=== PATIENT | male | born 1960 | race Hispanic/Latino ===

== ENCOUNTER → 2021-05-08 | Outpatient (CLI) | payer OTHER ==
[~2021-05-08] MED LIST: GLIPIZIDE-METF1 EAC2 PO; LISINOPRIL20 MG PO; [UNRECOGNIZED DRUG - REMARK]
== END ==
LOC: RAD 15:58
PROVIDERS: ATTEND Family Medicine
DX: M25.562 Pain in left knee (principal)

== ENCOUNTER 2021-06-24 12:17 | Inpatient (IN) | payer OTHER ==
[~2021-06-24] VITALS: Ht 175.3 cm; Wt 160.6 kg
[2021-06-24] MEDS ORDERED: Vancomycin IV 1 GM in SODIUM CHLORIDE 0.9% 250ML 250 ML IV ONE (13:30)
[2021-06-24] MEDS ORDERED: PIPERACILLIN/TAZOBACTAM 3.375 GM in SODIUM CHLORIDE 0.9% 50ML 50 ML IV ONE (13:30)
[2021-06-24] MEDS ORDERED: SODIUM CHLORIDE 0.9% 1000ML 1,000 ML IV ONE (13:30)
[2021-06-24 13:48] LABS: BASOPHILS % 0.3 % (0.0-1.0); EOSINOPHILS # (AUTO) 0.1 (0.0-0.4); EOSINOPHILS % 1.2 % (0.0-6.0); HEMATOCRIT 35.3 % (38.2-49.6); HEMOGLOBIN 11.3 g/dL (14.0-18.0); LYMPHOCYTES % 12.7 % (18.0-39.1); MEAN CORPUSCULAR VOLUME 93.6 fL (81-99); MONOCYTES % 13.5 % (4.4-11.3); NEUTROPHILS # (AUTO) 5.3 (2.1-6.9); NEUTROPHILS % 71.6 % (38.7-80.0); PLATELET COUNT 242 x10e3/uL (140-360); RED BLOOD COUNT 3.77 x10e6/uL (4.3-5.7); RED CELL DISTRIBUTION WIDTH 12.4 % (11.7-14.4)
[2021-06-24 13:53] LABS: INR 1.08; PROTHROMBIN TIME 14.9 seconds (11.9-14.5)
[2021-06-24 13:54] LABS: PARTIAL THROMBOPLASTIN TIME 25.8 seconds (23.8-35.5)
[2021-06-24 14:00] LABS: ALBUMIN 3.3 g/dL (3.5-5.0); ALBUMIN/GLOBULIN RATIO 0.8 (0.8-2.0); ANION GAP 15.4 mmol/L (8-16); CREATININE, SERUM 1.47 mg/dL (0.72-1.25); POTASSIUM 4.4 mmol/L (3.5-5.1)
[2021-06-24] MEDS ORDERED: Morphine 2mg Syringe 2 MG/ML SYR IV PRN (15:30)
[2021-06-24] MEDS ORDERED: ONDANSETRON HCL INJ 2MG/ML 2ML 2 MG/ML VIAL IV PRN ×2 (15:30→16:30)
[2021-06-24] MEDS ORDERED: HYDRALAZINE HCL 20 MG/ML VIAL IV PRN (16:30)
[2021-06-24] MEDS ORDERED: SIMETHICONE 80 MG CHEW PO PRN (16:30)
[2021-06-24] MEDS ORDERED: LIDOCAINE 4% PATCH TP PRN (16:30)
[2021-06-24] MEDS ORDERED: BENZONATATE 100 MG CAP PO PRN (16:30)
[2021-06-24] MEDS ORDERED: POTASSIUM CHLORIDE 20 MEQ TAB CR PO PRN (16:30)
[2021-06-24] MEDS ORDERED: ALBUTEROL/IPRATROPIUM 3 ML NEB NEB PRN (16:30)
[2021-06-24] MEDS ORDERED: DEXTROSE 50% SYRINGE 50 ML IV PRN ×2 (16:30→20:30)
[2021-06-24] MEDS ORDERED: DOCUSATE SODIUM 100 MG CAP PO PRN (16:30)
[2021-06-24] MEDS ORDERED: DIPHENHYDRAMINE HCL 25 MG CAP PO PRN (16:30)
[2021-06-24] MEDS: ENOXAPARIN SOD INJ 40 MG/0.4 ML SYR SC SCH (17:15)
[2021-06-24 20:10] VITALS: BP 120/55
[2021-06-24] MEDS ORDERED: MELATONIN 5 MG TABLET PO PRN (21:00)
[2021-06-24 21:30] VITALS: BP 120/55
[2021-06-24] MEDS ORDERED: SODIUM CHLORIDE 0.9% 250ML 250 ML ONE (22:04)
[2021-06-24] MEDS: CEFEPIME 1 GM in SODIUM CHLORIDE 0.9% 50ML 50 ML IV SCH (22:07)
[2021-06-24 22:29] VITALS: BP 120/55
[2021-06-25] VITALS (8 sets, daily range): BP systolic 94–128; BP diastolic 54–72
[2021-06-25] MEDS: ACETAMINOPHEN 325 MG TAB PO PRN ×2 (02:15→16:02)
[2021-06-25] MEDS: Vancomycin IV 1.25 GM in SODIUM CHLORIDE 0.9% 250ML 250 ML IV SCH ×2 (03:12→15:58)
[2021-06-25] MEDS: CEFEPIME 1 GM in SODIUM CHLORIDE 0.9% 50ML 50 ML IV SCH ×3 (05:39→21:26)
[2021-06-25 06:20] LABS: BASOPHILS % 0.6 % (0.0-1.0); EOSINOPHILS # (AUTO) 0.1 (0.0-0.4); EOSINOPHILS % 0.7 % (0.0-6.0); HEMATOCRIT 31.6 % (38.2-49.6); HEMOGLOBIN 10.4 g/dL (14.0-18.0); LYMPHOCYTES # (AUTO) 0.9 (1.0-3.2); LYMPHOCYTES % 12.2 % (18.0-39.1); MEAN CORPUSCULAR HEMOGLOBIN 30.2 pg (28-32); MEAN CORPUSCULAR HGB CONC 32.9 g/dL (31-35); MEAN CORPUSCULAR VOLUME 91.9 fL (81-99); MONOCYTES # (AUTO) 1.1 (0.2-0.8); MONOCYTES % 15.3 % (4.4-11.3); NEUTROPHILS % 70.5 % (38.7-80.0); PLATELET COUNT 232 x10e3/uL (140-360); RED BLOOD COUNT 3.44 x10e6/uL (4.3-5.7); RED CELL DISTRIBUTION WIDTH 12.4 % (11.7-14.4)
[2021-06-25 07:04] LABS: CHOL/HDL RATIO 4.5 (3.9-4.7)
[2021-06-25 07:14] LABS: THYROID STIMULATING HORMONE 0.632 uIU/mL (0.350-4.940)
[2021-06-25 07:30] LABS: ANION GAP 14.1 mmol/L (8-16); CALCIUM 8.4 mg/dL (8.4-10.2); CREATININE, SERUM 1.46 mg/dL (0.72-1.25); POTASSIUM 4.1 mmol/L (3.5-5.1)
[2021-06-25] MEDS: PANTOPRAZOLE SOD 40 MG TABEC PO SCH (07:30)
[2021-06-25] MEDS ORDERED: DEXTROSE 50% SYRINGE 50 ML IV PRN ×2 (08:15)
[2021-06-25] MEDS ORDERED: PROPOFOL IV EMULSION 10 MG/ML 20 ML VIAL ONE (08:52)
[2021-06-25] MEDS ORDERED: EPHEDRINE SULFATE INJ 50 MG/ML VIAL ONE (08:52)
[2021-06-25] MEDS ORDERED: LIDOCAINE HCL 2% LOCAL INJ 5 ML SDV VIAL INJ ONE (08:52)
[2021-06-25] MEDS ORDERED: POVIDONE IODINE 0.05% 0.05 % ML PO ONE (08:52)
[2021-06-25] MEDS ORDERED: SEVOFLURANE INHAL SOLN 250 ML PEN BTL ONE ×2 (08:52)
[2021-06-25] MEDS ORDERED: ONDANSETRON HCL INJ 2MG/ML 2ML 2 MG/ML VIAL ONE (08:52)
[2021-06-25] MEDS ORDERED: SUCCINYLCHOLINE CHLORIDE 20 MG/ML 10ML VIAL ONE (08:52)
[2021-06-25] MEDS ORDERED: INSULIN LISPRO 100 UNIT/1 ML 3ML VIAL SQ SCH (11:30)
[2021-06-25] MEDS ORDERED: HYDROCODONE/APAP 7.5MG-325MG 1 EA TAB PO PRN (11:45)
[2021-06-25] MEDS ORDERED: IBUPROFEN200 MG PO (11:47)
[2021-06-25] MEDS ORDERED: CRESTOR10 MG PO (11:48)
[2021-06-25] MEDS ORDERED: TRICOR145 MG PO (11:49)
[2021-06-25] MEDS ORDERED: ROPINIROLE HC0.25 MG PO (11:51)
[2021-06-25] MEDS ORDERED: METFORMIN HCL850 MG PO (11:52)
[2021-06-25] MEDS ORDERED: FENTANYL CITRATE/PF 100MCG/2 ML INJ ONE ×2 (11:59→18:06)
[2021-06-25] MEDS: INSULIN LISPRO 100 UNIT/1 ML 3ML VIAL SQ SCH ×4 (12:57→22:25)
[2021-06-25] MEDS: ENOXAPARIN SOD INJ 40 MG/0.4 ML SYR SC SCH (15:58)
[2021-06-25] MEDS ORDERED: INSULIN GLARGINE 100 UNITS/ML VIAL SQ SCH (21:15)
[2021-06-26] VITALS (7 sets, daily range): BP systolic 107–121; BP diastolic 55–75
[2021-06-26] MEDS: Vancomycin IV 1.25 GM in SODIUM CHLORIDE 0.9% 250ML 250 ML IV SCH ×2 (03:08→17:38)
[2021-06-26] MEDS: CEFEPIME 1 GM in SODIUM CHLORIDE 0.9% 50ML 50 ML IV SCH ×3 (05:45→22:15)
[2021-06-26 06:05] LABS: BASOPHILS % 0.3 % (0.0-1.0); EOSINOPHILS # (AUTO) 0.2 (0.0-0.4); HEMOGLOBIN 10.4 g/dL (14.0-18.0); LYMPHOCYTES # (AUTO) 1.2 (1.0-3.2); MEAN CORPUSCULAR HEMOGLOBIN 30.1 pg (28-32); MEAN CORPUSCULAR HGB CONC 32.5 g/dL (31-35); MEAN CORPUSCULAR VOLUME 92.5 fL (81-99); MONOCYTES # (AUTO) 1.3 (0.2-0.8); MONOCYTES % 14.5 % (4.4-11.3); NEUTROPHILS # (AUTO) 5.9 (2.1-6.9); NEUTROPHILS % 68.3 % (38.7-80.0); PLATELET COUNT 245 x10e3/uL (140-360); RED BLOOD COUNT 3.46 x10e6/uL (4.3-5.7); RED CELL DISTRIBUTION WIDTH 12.5 % (11.7-14.4)
[2021-06-26 06:22] LABS: ANION GAP 15.5 mmol/L (8-16); CALCIUM 9.3 mg/dL (8.4-10.2); CREATININE, SERUM 1.35 mg/dL (0.72-1.25); POTASSIUM 4.5 mmol/L (3.5-5.1)
[2021-06-26] MEDS: INSULIN LISPRO 100 UNIT/1 ML 3ML VIAL SQ SCH ×5 (08:20→20:39)
[2021-06-26] MEDS: PANTOPRAZOLE SOD 40 MG TABEC PO SCH (08:22)
[2021-06-26] MEDS ORDERED: ONDANSETRON HCL 4 MG ORAL DISINTEGRATING TAB PO PRN (14:15)
[2021-06-26 14:55] LABS: FREE T4 (FREE THYROXINE) 1.34 ng/dL (0.8-1.8); THYROID STIMULATING HORMONE 1.178 uIU/mL (0.350-4.940)
[2021-06-26] MEDS ORDERED: INSULIN LISPRO 100 UNIT/1 ML 3ML VIAL SQ SCH (16:30)
[2021-06-26] MEDS: ENOXAPARIN SOD INJ 40 MG/0.4 ML SYR SC SCH (16:34)
[2021-06-26] MEDS: INSULIN GLARGINE 100 UNITS/ML VIAL SQ SCH (20:39)
[2021-06-26] MEDS ORDERED: INSULIN GLARGINE 100 UNITS/ML VIAL SQ SCH (21:00)
[2021-06-27] VITALS (7 sets, daily range): BP systolic 108–126; BP diastolic 51–65
[2021-06-27] MEDS: Vancomycin IV 1.25 GM in SODIUM CHLORIDE 0.9% 250ML 250 ML IV SCH ×2 (03:14→14:30)
[2021-06-27] MEDS: CEFEPIME 1 GM in SODIUM CHLORIDE 0.9% 50ML 50 ML IV SCH ×3 (05:41→20:54)
[2021-06-27] MEDS: INSULIN LISPRO 100 UNIT/1 ML 3ML VIAL SQ SCH ×7 (07:30→20:53)
[2021-06-27] MEDS: PANTOPRAZOLE SOD 40 MG TABEC PO SCH (08:30)
[2021-06-27] MEDS ORDERED: SODIUM CHLORIDE 0.9% 1000ML 1,000 ML IV ONE (15:15)
[2021-06-27] MEDS ORDERED: IOPAMIDOL 370 MG/ML 200 ML INFUS..BTL INJ ONE (16:11)
[2021-06-27 17:05] LABS: BASOPHILS # (AUTO) 0.1 (0.0-0.1); BASOPHILS % 0.8 % (0.0-1.0); EOSINOPHILS # (AUTO) 0.2 (0.0-0.4); EOSINOPHILS % 2.8 % (0.0-6.0); HEMATOCRIT 32.1 % (38.2-49.6); LYMPHOCYTES # (AUTO) 1.5 (1.0-3.2); LYMPHOCYTES % 20.7 % (18.0-39.1); MEAN CORPUSCULAR HEMOGLOBIN 29.7 pg (28-32); MEAN CORPUSCULAR HGB CONC 31.2 g/dL (31-35); MEAN CORPUSCULAR VOLUME 95.3 fL (81-99); MONOCYTES # (AUTO) 0.8 (0.2-0.8); MONOCYTES % 11.1 % (4.4-11.3); NEUTROPHILS # (AUTO) 4.4 (2.1-6.9); NEUTROPHILS % 61.2 % (38.7-80.0); PLATELET COUNT 277 x10e3/uL (140-360); RED BLOOD COUNT 3.37 x10e6/uL (4.3-5.7); RED CELL DISTRIBUTION WIDTH 12.6 % (11.7-14.4)
[2021-06-27] MEDS: ENOXAPARIN SOD INJ 40 MG/0.4 ML SYR SC SCH (17:27)
[2021-06-27 17:30] LABS: ANION GAP 13.9 mmol/L (8-16); CALCIUM 9.1 mg/dL (8.4-10.2); CREATININE, SERUM 1.03 mg/dL (0.72-1.25); POTASSIUM 3.9 mmol/L (3.5-5.1)
[2021-06-27] MEDS: INSULIN GLARGINE 100 UNITS/ML VIAL SQ SCH (20:54)
[2021-06-28] VITALS: BP 122/75
[2021-06-28 04:00] VITALS: BP 103/52
[2021-06-28] MEDS: Vancomycin IV 1.25 GM in SODIUM CHLORIDE 0.9% 250ML 250 ML IV SCH ×2 (05:20→14:24)
[2021-06-28] MEDS: CEFEPIME 1 GM in SODIUM CHLORIDE 0.9% 50ML 50 ML IV SCH ×2 (05:21→13:07)
[2021-06-28] MEDS: INSULIN LISPRO 100 UNIT/1 ML 3ML VIAL SQ SCH ×4 (07:30→11:30)
[2021-06-28] MEDS: PANTOPRAZOLE SOD 40 MG TABEC PO SCH (08:30)
[2021-06-28 08:37] VITALS: BP 143/61
[2021-06-28 09:15] VITALS: BP 143/61
[2021-06-28 13:03] VITALS: BP 117/56
[2021-06-28 16:00] VITALS: BP 124/53
[2021-06-28] MEDS ORDERED: INSULIN LISPRO 100 UNIT/1 ML 3ML VIAL SQ SCH (16:30)
[2021-06-28] MEDS ORDERED: INSULIN GLARGINE 100 UNITS/ML VIAL SQ SCH (21:00)
== END 2021-06-28 17:02 | disposition home health service (06) | DRG 571 ==
LOC: ER 12:54 → ERHOLD 16:06 → MED/SURG3 20:42
PROVIDERS: ADMIT Internal Medicine; ATTEND Internal Medicine
PROC: 0JB60ZZ Excision of Chest Subcutaneous Tissue and Fascia, Open Approach (ICD-10-PCS; principal; 2021-06-25 11:00)
DX: L02.213 Cutaneous abscess of chest wall (principal); Z68.43 Body mass index [BMI] 50.0-59.9, adult; I10 Essential (primary) hypertension; E78.5 Hyperlipidemia, unspecified; E66.01 Morbid (severe) obesity due to excess calories; L97.529 Non-pressure chronic ulcer of other part of left foot with unspecified severity; E11.42 Type 2 diabetes mellitus with diabetic polyneuropathy; E11.51 Type 2 diabetes mellitus with diabetic peripheral angiopathy without gangrene; Z89.511 Acquired absence of right leg below knee; Z89.412 Acquired absence of left great toe; Z89.422 Acquired absence of other left toe(s); Z83.3 Family history of diabetes mellitus; Z82.49 Family history of ischemic heart disease and other diseases of the circulatory system; Z91.11 Patient's noncompliance with dietary regimen; G47.33 Obstructive sleep apnea (adult) (pediatric); Z20.822 Contact with and (suspected) exposure to COVID-19
CPT/HCPCS: 29581; 36415; 71260; 80048; 80053; 80061; 80202; 82948; 83036; 83605; 84439; 84443; 84484; 85025; 85610; 85730; 87040; 87071; 87205; 93005; 94799; 99251; 99285; J0330; J0692; J1650; J1815; J2001; J2405; J2543; J3010; J3370; J7030; J7050; Q9967; U0002

== ENCOUNTER 2021-07-06 11:35 | Inpatient (IN) | payer OTHER ==
[~2021-07-06] VITALS: Ht 175.3 cm; Wt 147.4 kg
[~2021-07-06 11:35] MED LIST changes: +CRESTOR10 MG PO; +IBUPROFEN200 MG PO; +METFORMIN HCL850 MG PO; +ROPINIROLE HC0.25 MG PO; +TRICOR145 MG PO
[2021-07-06] MEDS ORDERED: SODIUM CHLORIDE 0.9% 1000ML 1,000 ML IV SCH ×2 (12:00→13:15)
[2021-07-06] MEDS ORDERED: Morphine 2mg Syringe 2 MG/ML SYR IV PRN ×2 (12:00→15:45)
[2021-07-06] MEDS ORDERED: ONDANSETRON HCL INJ 2MG/ML 2ML 2 MG/ML VIAL IV PRN (12:00)
[2021-07-06] MEDS: PIPERACILLIN/TAZOBACTAM 3.375 GM in SODIUM CHLORIDE 0.9% 50ML 50 ML IV SCH ×2 (12:27→22:00)
[2021-07-06 12:44] LABS: BASOPHILS % 0.3 % (0.0-1.0); EOSINOPHILS # (AUTO) 0.1 (0.0-0.4); EOSINOPHILS % 1.5 % (0.0-6.0); HEMATOCRIT 35.3 % (38.2-49.6); LYMPHOCYTES # (AUTO) 1.6 (1.0-3.2); LYMPHOCYTES % 18.3 % (18.0-39.1); MEAN CORPUSCULAR HEMOGLOBIN 29.1 pg (28-32); MEAN CORPUSCULAR HGB CONC 31.2 g/dL (31-35); MEAN CORPUSCULAR VOLUME 93.4 fL (81-99); MONOCYTES % 11.6 % (4.4-11.3); NEUTROPHILS # (AUTO) 5.9 (2.1-6.9); NEUTROPHILS % 67.7 % (38.7-80.0); PLATELET COUNT 321 x10e3/uL (140-360); RED BLOOD COUNT 3.78 x10e6/uL (4.3-5.7); RED CELL DISTRIBUTION WIDTH 12.8 % (11.7-14.4)
[2021-07-06] MEDS: Vancomycin IV 1 GM in SODIUM CHLORIDE 0.9% 250ML 250 ML IV SCH ×2 (13:04→21:00)
[2021-07-06 13:08] LABS: ALBUMIN 3.5 g/dL (3.5-5.0); ALBUMIN/GLOBULIN RATIO 0.9 (0.8-2.0); ANION GAP 14.9 mmol/L (8-16); CALCIUM 9.5 mg/dL (8.4-10.2); CREATININE, SERUM 1.23 mg/dL (0.72-1.25); POTASSIUM 4.9 mmol/L (3.5-5.1)
[2021-07-06] MEDS ORDERED: SODIUM CHLORIDE 0.9% 250ML 150 ML IV ONE (13:15)
[2021-07-06] MEDS ORDERED: IOPAMIDOL 370 MG/ML 200 ML INFUS..BTL INJ ONE (15:02)
[2021-07-06] MEDS ORDERED: SODIUM CHLORIDE 0.9% 50ML 50 ML ONE (15:02)
[2021-07-06] MEDS ORDERED: METFORMIN HCL500 MG PO (15:50)
[2021-07-06] MEDS ORDERED: CEPHALEXIN500 MG PO (15:50)
[2021-07-06] MEDS ORDERED: IBUPROFEN600 MG PO (15:50)
[2021-07-06] MEDS ORDERED: INSULIN SQ (15:51)
[2021-07-06] MEDS ORDERED: NOVOLOG100 UNIT/1 SC (15:51)
[2021-07-06] MEDS: Clindamycin INJ 600 MG 600 MG in SODIUM CHLORIDE 0.9% 50ML 50 ML IV SCH (16:00)
[2021-07-06] MEDS: SODIUM CHLORIDE 0.9% 1000ML 1,000 ML IV SCH (16:00)
[2021-07-06] MEDS ORDERED: CEFEPIME 1 GM in SODIUM CHLORIDE 0.9% 50ML 50 ML IV SCH (21:00)
[2021-07-07] MEDS: Clindamycin INJ 600 MG 600 MG in SODIUM CHLORIDE 0.9% 50ML 50 ML IV SCH ×3 (00:57→16:37)
[2021-07-07] MEDS: SODIUM CHLORIDE 0.9% 1000ML 1,000 ML IV SCH ×4 (00:57→20:07)
[2021-07-07 05:04] LABS: BASOPHILS % 0.4 % (0.0-1.0); EOSINOPHILS # (AUTO) 0.1 (0.0-0.4); EOSINOPHILS % 1.8 % (0.0-6.0); HEMATOCRIT 32.7 % (38.2-49.6); HEMOGLOBIN 10.1 g/dL (14.0-18.0); LYMPHOCYTES # (AUTO) 0.9 (1.0-3.2); LYMPHOCYTES % 12.4 % (18.0-39.1); MEAN CORPUSCULAR HEMOGLOBIN 29.7 pg (28-32); MEAN CORPUSCULAR HGB CONC 30.9 g/dL (31-35); MEAN CORPUSCULAR VOLUME 96.2 fL (81-99); MONOCYTES # (AUTO) 0.9 (0.2-0.8); MONOCYTES % 12.7 % (4.4-11.3); NEUTROPHILS # (AUTO) 5.3 (2.1-6.9); NEUTROPHILS % 72.4 % (38.7-80.0); PLATELET COUNT 302 x10e3/uL (140-360)
[2021-07-07 05:35] LABS: CALCIUM 8.9 mg/dL (8.4-10.2); CREATININE, SERUM 1.21 mg/dL (0.72-1.25)
[2021-07-07 05:55] VITALS: BP 120/58
[2021-07-07] MEDS: PIPERACILLIN/TAZOBACTAM 3.375 GM in SODIUM CHLORIDE 0.9% 50ML 50 ML IV SCH (06:42)
[2021-07-07 08:51] VITALS: BP 120/58
[2021-07-07] MEDS: Vancomycin IV 1 GM in SODIUM CHLORIDE 0.9% 250ML 250 ML IV SCH (09:05)
[2021-07-07] MEDS ORDERED: NOVOLIN R100 UNIT/1 SQ (11:03)
[2021-07-07] MEDS ORDERED: NOVOLIN N100 UNIT/1 SQ (11:04)
[2021-07-07] MEDS ORDERED: DEXTROSE 50% SYRINGE 50 ML IV PRN (11:15)
[2021-07-07] MEDS: INSULIN GLARGINE 100 UNITS/ML VIAL SQ SCH ×2 (12:20→19:57)
[2021-07-07] MEDS: INSULIN LISPRO 100 UNIT/1 ML 3ML VIAL SQ SCH ×3 (12:25→19:56)
[2021-07-07] MEDS ORDERED: METOLAZONE 5 MG TAB PO NR (12:30)
[2021-07-07] MEDS: FUROSEMIDE INJ 10 MG/ML 4 ML VIAL IV SCH ×2 (13:00→19:57)
[2021-07-07] MEDS: METFORMIN HCL 500 MG TAB PO SCH (16:37)
[2021-07-07] MEDS: ROPINIROLE HCL 0.25 MG TAB PO SCH (16:37)
[2021-07-07] MEDS: SIMVASTATIN 40 MG TAB PO SCH (19:57)
[2021-07-07 20:00] VITALS: BP 131/69
[2021-07-07 23:56] VITALS: BP 128/68
[2021-07-08] MEDS: Clindamycin INJ 600 MG 600 MG in SODIUM CHLORIDE 0.9% 50ML 50 ML IV SCH ×3 (00:15→16:06)
[2021-07-08 05:33] VITALS: BP 122/68
[2021-07-08] MEDS: SODIUM CHLORIDE 0.9% 1000ML 1,000 ML IV SCH ×3 (06:04→22:39)
[2021-07-08 06:17] LABS: BASOPHILS % 0.7 % (0.0-1.0); EOSINOPHILS # (AUTO) 0.2 (0.0-0.4); EOSINOPHILS % 2.9 % (0.0-6.0); HEMATOCRIT 38.5 % (38.2-49.6); LYMPHOCYTES # (AUTO) 1.2 (1.0-3.2); MEAN CORPUSCULAR HEMOGLOBIN 29.6 pg (28-32); MEAN CORPUSCULAR HGB CONC 28.6 g/dL (31-35); MEAN CORPUSCULAR VOLUME 103.8 fL (81-99); MONOCYTES # (AUTO) 0.9 (0.2-0.8); NEUTROPHILS # (AUTO) 3.5 (2.1-6.9); NEUTROPHILS % 59.1 % (38.7-80.0); PLATELET COUNT 247 x10e3/uL (140-360); RED BLOOD COUNT 3.71 x10e6/uL (4.3-5.7); RED CELL DISTRIBUTION WIDTH 12.9 % (11.7-14.4)
[2021-07-08 06:40] LABS: CALCIUM 9.6 mg/dL (8.4-10.2); CREATININE, SERUM 1.43 mg/dL (0.72-1.25)
[2021-07-08] MEDS: ONDANSETRON HCL INJ 2MG/ML 2ML 2 MG/ML VIAL IV PRN ×2 (07:27→12:00)
[2021-07-08] MEDS: INSULIN LISPRO 100 UNIT/1 ML 3ML VIAL SQ SCH ×4 (07:30→21:00)
[2021-07-08 08:20] VITALS: BP 143/68
[2021-07-08 08:40] VITALS: BP 143/68
[2021-07-08] MEDS: INSULIN GLARGINE 100 UNITS/ML VIAL SQ SCH ×2 (09:00→21:00)
[2021-07-08] MEDS: METFORMIN HCL 500 MG TAB PO SCH ×2 (09:49→17:07)
[2021-07-08] MEDS: FUROSEMIDE INJ 10 MG/ML 4 ML VIAL IV SCH ×2 (09:49→20:56)
[2021-07-08] MEDS: LISINOPRIL 20 MG TAB PO SCH (09:50)
[2021-07-08] MEDS: ROPINIROLE HCL 0.25 MG TAB PO SCH ×2 (09:50→17:07)
[2021-07-08] MEDS: FENOFIBRATE 145 MG TAB PO SCH (09:50)
[2021-07-08 11:47] VITALS: BP 179/82
[2021-07-08 15:33] VITALS: BP 151/71
[2021-07-08 20:00] VITALS: BP 143/72
[2021-07-08] MEDS: SIMVASTATIN 40 MG TAB PO SCH (20:56)
[2021-07-09] VITALS (7 sets, daily range): BP systolic 89–161; BP diastolic 53–88
[2021-07-09] MEDS: Clindamycin INJ 600 MG 600 MG in SODIUM CHLORIDE 0.9% 50ML 50 ML IV SCH ×3 (00:07→20:56)
[2021-07-09] MEDS ORDERED: METOCLOPRAMIDE HCL 10 MG/2ML VIAL IV STA (00:59)
[2021-07-09] MEDS: SODIUM CHLORIDE 0.9% 1000ML 1,000 ML IV SCH ×3 (05:36→20:56)
[2021-07-09 05:44] LABS: BASOPHILS % 0.3 % (0.0-1.0); EOSINOPHILS % 0.6 % (0.0-6.0); HEMATOCRIT 35.4 % (38.2-49.6); HEMOGLOBIN 11.1 g/dL (14.0-18.0); LYMPHOCYTES % 15.7 % (18.0-39.1); MEAN CORPUSCULAR HEMOGLOBIN 29.3 pg (28-32); MEAN CORPUSCULAR HGB CONC 31.4 g/dL (31-35); MEAN CORPUSCULAR VOLUME 93.4 fL (81-99); MONOCYTES # (AUTO) 0.8 (0.2-0.8); MONOCYTES % 12.6 % (4.4-11.3); NEUTROPHILS # (AUTO) 4.7 (2.1-6.9); NEUTROPHILS % 70.5 % (38.7-80.0); PLATELET COUNT 321 x10e3/uL (140-360); RED BLOOD COUNT 3.79 x10e6/uL (4.3-5.7); RED CELL DISTRIBUTION WIDTH 12.5 % (11.7-14.4)
[2021-07-09] MEDS: METOCLOPRAMIDE HCL 10 MG/2ML VIAL IV SCH ×4 (06:00→20:56)
[2021-07-09 06:06] LABS: ALBUMIN 3.4 g/dL (3.5-5.0); ALBUMIN/GLOBULIN RATIO 0.8 (0.8-2.0); ANION GAP 14.5 mmol/L (8-16); CALCIUM 9.1 mg/dL (8.4-10.2); CREATININE, SERUM 1.35 mg/dL (0.72-1.25); POTASSIUM 4.5 mmol/L (3.5-5.1)
[2021-07-09 06:26] LABS: FERRITIN 183.38 ng/mL (21.81-274.66)
[2021-07-09] MEDS: INSULIN LISPRO 100 UNIT/1 ML 3ML VIAL SQ SCH ×4 (07:30→21:21)
[2021-07-09] MEDS: METFORMIN HCL 500 MG TAB PO SCH ×2 (09:00→17:17)
[2021-07-09] MEDS: ROPINIROLE HCL 0.25 MG TAB PO SCH ×2 (09:00→17:17)
[2021-07-09] MEDS: LISINOPRIL 20 MG TAB PO SCH (09:00)
[2021-07-09] MEDS: FENOFIBRATE 145 MG TAB PO SCH (09:00)
[2021-07-09] MEDS: INSULIN GLARGINE 100 UNITS/ML VIAL SQ SCH (09:00)
[2021-07-09] MEDS: INSULIN REGULAR, HUMAN 100 UNIT/1 ML SQ SCH (16:30)
[2021-07-09 16:58] LABS: CLARITY,URINE CLEAR (CLEAR); COLOR,URINE YELLOW (YELLOW); KETONES,URINE NEGATIVE (NEGATIVE); LEUKOCYTE ESTERASE ,URINE NEGATIVE (NEGATIVE); NITRITE,URINE NEGATIVE (NEGATIVE); PROTEIN,URINE DIPSTICK NEGATIVE (NEGATIVE); URINE UROBILINOGEN 0.2 mg/dL (0.2 - 1)
[2021-07-09 17:05] LABS: WBC,URINE (MAN) 0-5 /HPF (0-5)
[2021-07-09] MEDS: INSULIN ASPART 70/30 100 UNITS/ML VIAL SC SCH (17:25)
[2021-07-09] MEDS: FUROSEMIDE INJ 10 MG/ML 4 ML VIAL IV SCH ×2 (20:56→21:00)
[2021-07-09] MEDS: SIMVASTATIN 40 MG TAB PO SCH (20:56)
[2021-07-10] VITALS (8 sets, daily range): BP systolic 110–132; BP diastolic 62–74
[2021-07-10] MEDS: METOCLOPRAMIDE HCL 10 MG/2ML VIAL IV SCH ×4 (00:04→18:19)
[2021-07-10] MEDS: Clindamycin INJ 600 MG 600 MG in SODIUM CHLORIDE 0.9% 50ML 50 ML IV SCH ×4 (00:04→23:02)
[2021-07-10] MEDS: SODIUM CHLORIDE 0.9% 1000ML 1,000 ML IV SCH ×3 (05:19→23:02)
[2021-07-10 06:01] LABS: BASOPHILS # (AUTO) 0.1 (0.0-0.1); BASOPHILS % 0.8 % (0.0-1.0); EOSINOPHILS # (AUTO) 0.4 (0.0-0.4); EOSINOPHILS % 6.3 % (0.0-6.0); HEMATOCRIT 32.3 % (38.2-49.6); LYMPHOCYTES # (AUTO) 1.6 (1.0-3.2); LYMPHOCYTES % 24.4 % (18.0-39.1); MEAN CORPUSCULAR HEMOGLOBIN 28.8 pg (28-32); MEAN CORPUSCULAR VOLUME 93.1 fL (81-99); MONOCYTES # (AUTO) 0.9 (0.2-0.8); MONOCYTES % 13.6 % (4.4-11.3); NEUTROPHILS # (AUTO) 3.6 (2.1-6.9); NEUTROPHILS % 54.6 % (38.7-80.0); PLATELET COUNT 306 x10e3/uL (140-360); RED BLOOD COUNT 3.47 x10e6/uL (4.3-5.7); RED CELL DISTRIBUTION WIDTH 12.6 % (11.7-14.4)
[2021-07-10 06:28] LABS: ALBUMIN/GLOBULIN RATIO 0.8 (0.8-2.0); ANION GAP 13.9 mmol/L (8-16); CALCIUM 9.1 mg/dL (8.4-10.2); CREATININE, SERUM 1.41 mg/dL (0.72-1.25); MAGNESIUM 2.1 MG/DL (1.3-2.1); POTASSIUM 3.9 mmol/L (3.5-5.1)
[2021-07-10] MEDS: METFORMIN HCL 500 MG TAB PO SCH ×2 (08:00→17:29)
[2021-07-10] MEDS ORDERED: SODIUM CHLORIDE 0.9% 50ML 50 ML ONE (08:12)
[2021-07-10] MEDS: ROPINIROLE HCL 0.25 MG TAB PO SCH ×2 (09:00→17:29)
[2021-07-10] MEDS: FUROSEMIDE INJ 10 MG/ML 4 ML VIAL IV SCH ×2 (09:00→21:38)
[2021-07-10] MEDS: FENOFIBRATE 145 MG TAB PO SCH (09:00)
[2021-07-10] MEDS: LISINOPRIL 20 MG TAB PO SCH (09:00)
[2021-07-10] MEDS: INSULIN REGULAR, HUMAN 100 UNIT/1 ML SQ SCH ×3 (10:21→17:33)
[2021-07-10] MEDS: INSULIN ASPART 70/30 100 UNITS/ML VIAL SC SCH ×2 (10:21→17:32)
[2021-07-10] MEDS: INSULIN LISPRO 100 UNIT/1 ML 3ML VIAL SQ SCH ×4 (10:22→20:15)
[2021-07-10] MEDS ORDERED: FUROSEMIDE INJ 10 MG/ML 4 ML VIAL IV ONE (12:45)
[2021-07-10 12:46] LABS: CREATININE,URINE RANDOM 66.78 mg/dL (63-166); SODIUM,URINE 96 mmol/L; TOTAL PROTEIN, URINE 13.7 mg/dL (1-14)
[2021-07-10 13:36] LABS: EOSINOPHIL SMEAR,URINE NONE SEEN (NONE SEEN)
[2021-07-10] MEDS: CEFEPIME 2 GM in SODIUM CHLORIDE 0.9% 100 ML IV SCH (18:00)
[2021-07-10] MEDS: SIMVASTATIN 20 MG TAB PO SCH (21:38)
[2021-07-11] VITALS (7 sets, daily range): BP systolic 98–150; BP diastolic 52–84
[2021-07-11] MEDS: METOCLOPRAMIDE HCL 10 MG/2ML VIAL IV SCH ×4 (00:15→17:26)
[2021-07-11] MEDS: CEFEPIME 2 GM in SODIUM CHLORIDE 0.9% 100 ML IV SCH ×2 (06:50→17:23)
[2021-07-11] MEDS: INSULIN REGULAR, HUMAN 100 UNIT/1 ML SQ SCH ×3 (07:30→16:30)
[2021-07-11] MEDS: INSULIN LISPRO 100 UNIT/1 ML 3ML VIAL SQ SCH ×4 (07:30→21:31)
[2021-07-11] MEDS: INSULIN ASPART 70/30 100 UNITS/ML VIAL SC SCH ×2 (08:00→17:00)
[2021-07-11] MEDS ORDERED: SODIUM CHLORIDE 0.9% 1000ML 1,000 ML IV SCH (08:30)
[2021-07-11] MEDS: METFORMIN HCL 500 MG TAB PO SCH ×2 (08:39→17:07)
[2021-07-11] MEDS: ROPINIROLE HCL 0.25 MG TAB PO SCH ×2 (08:40→17:07)
[2021-07-11] MEDS: LISINOPRIL 20 MG TAB PO SCH (08:40)
[2021-07-11] MEDS: FENOFIBRATE 145 MG TAB PO SCH (08:40)
[2021-07-11] MEDS: FUROSEMIDE INJ 10 MG/ML 4 ML VIAL IV SCH ×2 (08:43→21:00)
[2021-07-11] MEDS: Clindamycin INJ 600 MG 600 MG in SODIUM CHLORIDE 0.9% 50ML 50 ML IV SCH ×2 (08:46→17:07)
[2021-07-11 13:35] LABS: BASOPHILS % 0.7 % (0.0-1.0); EOSINOPHILS # (AUTO) 0.3 (0.0-0.4); EOSINOPHILS % 5.1 % (0.0-6.0); HEMATOCRIT 33.8 % (38.2-49.6); HEMOGLOBIN 10.6 g/dL (14.0-18.0); LYMPHOCYTES # (AUTO) 0.9 (1.0-3.2); LYMPHOCYTES % 16.7 % (18.0-39.1); MEAN CORPUSCULAR HEMOGLOBIN 29.4 pg (28-32); MEAN CORPUSCULAR HGB CONC 31.4 g/dL (31-35); MEAN CORPUSCULAR VOLUME 93.9 fL (81-99); MONOCYTES # (AUTO) 0.7 (0.2-0.8); MONOCYTES % 12.7 % (4.4-11.3); NEUTROPHILS # (AUTO) 3.5 (2.1-6.9); NEUTROPHILS % 64.6 % (38.7-80.0); PLATELET COUNT 309 x10e3/uL (140-360); RED CELL DISTRIBUTION WIDTH 12.6 % (11.7-14.4)
[2021-07-11 13:56] LABS: ANION GAP 14.4 mmol/L (8-16); CALCIUM 8.5 mg/dL (8.4-10.2); CREATININE, SERUM 1.11 mg/dL (0.72-1.25); POTASSIUM 3.4 mmol/L (3.5-5.1)
[2021-07-11] MEDS ORDERED: POTASSIUM CHLORIDE 20 MEQ TAB CR PO STA (14:14)
[2021-07-11] MEDS: SIMVASTATIN 20 MG TAB PO SCH (21:31)
[2021-07-12] VITALS (7 sets, daily range): BP systolic 106–137; BP diastolic 58–74
[2021-07-12] MEDS ORDERED: SODIUM CHLORIDE 0.9% 50ML 0 ML ONE (00:10)
[2021-07-12] MEDS ORDERED: Clindamycin INJ 150 MG/ML 600 MG Vial ONE (00:21)
[2021-07-12] MEDS: METOCLOPRAMIDE HCL 10 MG/2ML VIAL IV SCH ×4 (00:51→18:25)
[2021-07-12] MEDS: Clindamycin INJ 600 MG 600 MG in SODIUM CHLORIDE 0.9% 50ML 50 ML IV SCH ×3 (00:51→17:00)
[2021-07-12] MEDS: CEFEPIME 2 GM in SODIUM CHLORIDE 0.9% 100 ML IV SCH ×2 (06:43→18:25)
[2021-07-12 07:16] LABS: ANION GAP 13.8 mmol/L (8-16); CALCIUM 8.6 mg/dL (8.4-10.2); CREATININE, SERUM 1.19 mg/dL (0.72-1.25); POTASSIUM 3.8 mmol/L (3.5-5.1)
[2021-07-12 07:47] LABS: BASOPHILS % 0.7 % (0.0-1.0); EOSINOPHILS # (AUTO) 0.3 (0.0-0.4); EOSINOPHILS % 4.7 % (0.0-6.0); HEMATOCRIT 33.5 % (38.2-49.6); HEMOGLOBIN 10.3 g/dL (14.0-18.0); LYMPHOCYTES # (AUTO) 1.2 (1.0-3.2); LYMPHOCYTES % 21.2 % (18.0-39.1); MEAN CORPUSCULAR HEMOGLOBIN 29.1 pg (28-32); MEAN CORPUSCULAR HGB CONC 30.7 g/dL (31-35); MEAN CORPUSCULAR VOLUME 94.6 fL (81-99); MONOCYTES # (AUTO) 0.8 (0.2-0.8); MONOCYTES % 13.6 % (4.4-11.3); NEUTROPHILS # (AUTO) 3.3 (2.1-6.9); NEUTROPHILS % 59.6 % (38.7-80.0); PLATELET COUNT 277 x10e3/uL (140-360); RED BLOOD COUNT 3.54 x10e6/uL (4.3-5.7); RED CELL DISTRIBUTION WIDTH 12.8 % (11.7-14.4)
[2021-07-12] MEDS ORDERED: SODIUM CHLORIDE 0.9% 50ML 50 ML ONE ×2 (08:17→23:18)
[2021-07-12] MEDS: INSULIN REGULAR, HUMAN 100 UNIT/1 ML SQ SCH ×2 (08:30→12:05)
[2021-07-12] MEDS: INSULIN ASPART 70/30 100 UNITS/ML VIAL SC SCH ×2 (08:30→17:00)
[2021-07-12] MEDS: INSULIN LISPRO 100 UNIT/1 ML 3ML VIAL SQ SCH ×5 (08:30→21:00)
[2021-07-12] MEDS: METFORMIN HCL 500 MG TAB PO SCH ×2 (08:44→16:57)
[2021-07-12] MEDS: ROPINIROLE HCL 0.25 MG TAB PO SCH ×2 (08:44→16:58)
[2021-07-12] MEDS: FENOFIBRATE 145 MG TAB PO SCH (08:44)
[2021-07-12] MEDS: LISINOPRIL 20 MG TAB PO SCH (08:45)
[2021-07-12] MEDS: FUROSEMIDE INJ 10 MG/ML 4 ML VIAL IV SCH ×2 (09:00→21:03)
[2021-07-12] MEDS ORDERED: FUROSEMIDE INJ 10 MG/ML 4 ML VIAL IV ONE (14:00)
[2021-07-12] MEDS: SIMVASTATIN 20 MG TAB PO SCH (21:03)
[2021-07-13] VITALS (9 sets, daily range): BP systolic 100–127; BP diastolic 45–67
[2021-07-13] MEDS: METOCLOPRAMIDE HCL 10 MG/2ML VIAL IV SCH ×4 (00:14→18:10)
[2021-07-13] MEDS: Clindamycin INJ 600 MG 600 MG in SODIUM CHLORIDE 0.9% 50ML 50 ML IV SCH ×3 (00:14→16:26)
[2021-07-13] MEDS: CEFEPIME 2 GM in SODIUM CHLORIDE 0.9% 100 ML IV SCH ×2 (06:32→18:10)
[2021-07-13] MEDS: INSULIN LISPRO 100 UNIT/1 ML 3ML VIAL SQ SCH ×7 (07:30→21:00)
[2021-07-13] MEDS: PANTOPRAZOLE SOD 40 MG TABEC PO SCH (08:00)
[2021-07-13] MEDS: INSULIN ASPART 70/30 100 UNITS/ML VIAL SC SCH ×2 (08:00→17:00)
[2021-07-13] MEDS: FENOFIBRATE 145 MG TAB PO SCH (09:06)
[2021-07-13] MEDS: METFORMIN HCL 500 MG TAB PO SCH ×2 (09:06→17:37)
[2021-07-13] MEDS: LISINOPRIL 20 MG TAB PO SCH (09:06)
[2021-07-13] MEDS: ROPINIROLE HCL 0.25 MG TAB PO SCH ×2 (09:06→17:37)
[2021-07-13] MEDS: FUROSEMIDE INJ 10 MG/ML 4 ML VIAL IV SCH ×2 (09:06→21:30)
[2021-07-13 14:51] LABS: BASOPHILS # (AUTO) 0.1 (0.0-0.1); BASOPHILS % 0.9 % (0.0-1.0); EOSINOPHILS # (AUTO) 0.4 (0.0-0.4); EOSINOPHILS % 5.9 % (0.0-6.0); HEMATOCRIT 34.6 % (38.2-49.6); LYMPHOCYTES # (AUTO) 1.3 (1.0-3.2); LYMPHOCYTES % 19.9 % (18.0-39.1); MEAN CORPUSCULAR HEMOGLOBIN 29.5 pg (28-32); MEAN CORPUSCULAR HGB CONC 31.8 g/dL (31-35); MEAN CORPUSCULAR VOLUME 92.8 fL (81-99); MONOCYTES # (AUTO) 0.9 (0.2-0.8); MONOCYTES % 14.3 % (4.4-11.3); NEUTROPHILS # (AUTO) 3.8 (2.1-6.9); NEUTROPHILS % 58.5 % (38.7-80.0); PLATELET COUNT 293 x10e3/uL (140-360); RED BLOOD COUNT 3.73 x10e6/uL (4.3-5.7); RED CELL DISTRIBUTION WIDTH 12.4 % (11.7-14.4)
[2021-07-13 15:14] LABS: ANION GAP 17.8 mmol/L (8-16); CALCIUM 9.1 mg/dL (8.4-10.2); CREATININE, SERUM 1.52 mg/dL (0.72-1.25); POTASSIUM 3.8 mmol/L (3.5-5.1)
[2021-07-13 17:09] LABS: ALPHA 2 GLOBULIN URINE PEP 14.1 % (.)
[2021-07-13] MEDS: SIMVASTATIN 20 MG TAB PO SCH (21:30)
[2021-07-14] MEDS: Clindamycin INJ 600 MG 600 MG in SODIUM CHLORIDE 0.9% 50ML 50 ML IV SCH ×3 (00:03→15:24)
[2021-07-14] MEDS: METOCLOPRAMIDE HCL 10 MG/2ML VIAL IV SCH ×4 (00:03→17:41)
[2021-07-14 00:10] VITALS: BP 96/53
[2021-07-14] MEDS ORDERED: BISACODYL 5 MG TAB EC PO ONE ×2 (00:15→09:00)
[2021-07-14 04:00] VITALS: BP 133/67
[2021-07-14 05:40] LABS: BASOPHILS # (AUTO) 0.1 (0.0-0.1); EOSINOPHILS # (AUTO) 0.4 (0.0-0.4); HEMATOCRIT 32.8 % (38.2-49.6); HEMOGLOBIN 10.3 g/dL (14.0-18.0); LYMPHOCYTES # (AUTO) 1.5 (1.0-3.2); LYMPHOCYTES % 24.5 % (18.0-39.1); MEAN CORPUSCULAR HEMOGLOBIN 29.4 pg (28-32); MEAN CORPUSCULAR HGB CONC 31.4 g/dL (31-35); MEAN CORPUSCULAR VOLUME 93.7 fL (81-99); MONOCYTES % 15.6 % (4.4-11.3); NEUTROPHILS # (AUTO) 3.2 (2.1-6.9); NEUTROPHILS % 52.6 % (38.7-80.0); PLATELET COUNT 268 x10e3/uL (140-360); RED CELL DISTRIBUTION WIDTH 12.5 % (11.7-14.4)
[2021-07-14 06:11] LABS: ALBUMIN 3.2 g/dL (3.5-5.0); ALBUMIN/GLOBULIN RATIO 0.9 (0.8-2.0); ANION GAP 13.8 mmol/L (8-16); CALCIUM 9.9 mg/dL (8.4-10.2); CREATININE, SERUM 1.73 mg/dL (0.72-1.25); MAGNESIUM 1.6 MG/DL (1.3-2.1); POTASSIUM 3.8 mmol/L (3.5-5.1)
[2021-07-14] MEDS: CEFEPIME 2 GM in SODIUM CHLORIDE 0.9% 100 ML IV SCH ×2 (06:13→17:40)
[2021-07-14] MEDS: INSULIN LISPRO 100 UNIT/1 ML 3ML VIAL SQ SCH ×7 (07:30→20:34)
[2021-07-14] MEDS: PANTOPRAZOLE SOD 40 MG TABEC PO SCH (07:35)
[2021-07-14] MEDS: INSULIN ASPART 70/30 100 UNITS/ML VIAL SC SCH ×2 (08:00→17:00)
[2021-07-14 08:15] VITALS: BP 130/82
[2021-07-14] MEDS: FENOFIBRATE 145 MG TAB PO SCH (09:38)
[2021-07-14] MEDS: ROPINIROLE HCL 0.25 MG TAB PO SCH ×2 (09:38→16:48)
[2021-07-14] MEDS: METFORMIN HCL 500 MG TAB PO SCH ×2 (09:38→16:48)
[2021-07-14] MEDS: LISINOPRIL 20 MG TAB PO SCH (09:38)
[2021-07-14] MEDS: FUROSEMIDE INJ 10 MG/ML 4 ML VIAL IV SCH ×2 (09:38→21:09)
[2021-07-14] MEDS ORDERED: ONDANSETRON HCL 4 MG ORAL DISINTEGRATING TAB PO PRN (18:00)
[2021-07-14 20:00] VITALS: BP 104/52
[2021-07-14 20:27] VITALS: BP 104/52
[2021-07-14] MEDS: SIMVASTATIN 20 MG TAB PO SCH (21:09)
[2021-07-15] VITALS: BP 111/56
[2021-07-15 04:00] VITALS: BP 113/63
[2021-07-15] MEDS: METOCLOPRAMIDE HCL 10 MG/2ML VIAL IV SCH ×3 (05:06→11:50)
[2021-07-15] MEDS: CEFEPIME 2 GM in SODIUM CHLORIDE 0.9% 100 ML IV SCH (05:06)
[2021-07-15 06:19] LABS: BASOPHILS # (AUTO) 0.1 (0.0-0.1); BASOPHILS % 0.9 % (0.0-1.0); EOSINOPHILS # (AUTO) 0.4 (0.0-0.4); HEMATOCRIT 31.6 % (38.2-49.6); HEMOGLOBIN 9.7 g/dL (14.0-18.0); LYMPHOCYTES # (AUTO) 1.5 (1.0-3.2); LYMPHOCYTES % 26.4 % (18.0-39.1); MEAN CORPUSCULAR HEMOGLOBIN 28.8 pg (28-32); MEAN CORPUSCULAR HGB CONC 30.7 g/dL (31-35); MEAN CORPUSCULAR VOLUME 93.8 fL (81-99); MONOCYTES # (AUTO) 0.9 (0.2-0.8); MONOCYTES % 16.1 % (4.4-11.3); NEUTROPHILS # (AUTO) 2.9 (2.1-6.9); NEUTROPHILS % 49.3 % (38.7-80.0); PLATELET COUNT 257 x10e3/uL (140-360); RED BLOOD COUNT 3.37 x10e6/uL (4.3-5.7); RED CELL DISTRIBUTION WIDTH 12.6 % (11.7-14.4)
[2021-07-15] MEDS: INSULIN LISPRO 100 UNIT/1 ML 3ML VIAL SQ SCH ×4 (07:30→11:51)
[2021-07-15] MEDS: INSULIN ASPART 70/30 100 UNITS/ML VIAL SC SCH (08:00)
[2021-07-15 08:10] VITALS: BP 133/66
[2021-07-15 08:19] VITALS: BP 133/66
[2021-07-15 08:20] LABS: ANION GAP 14.1 mmol/L (8-16); CALCIUM 9.5 mg/dL (8.4-10.2); CREATININE, SERUM 1.76 mg/dL (0.72-1.25); POTASSIUM 4.1 mmol/L (3.5-5.1)
[2021-07-15] MEDS: PANTOPRAZOLE SOD 40 MG TABEC PO SCH (08:30)
[2021-07-15] MEDS: Clindamycin INJ 600 MG 600 MG in SODIUM CHLORIDE 0.9% 50ML 50 ML IV SCH ×3 (08:36)
[2021-07-15] MEDS: METFORMIN HCL 500 MG TAB PO SCH (08:39)
[2021-07-15] MEDS: LISINOPRIL 20 MG TAB PO SCH (08:41)
[2021-07-15] MEDS: FUROSEMIDE INJ 10 MG/ML 4 ML VIAL IV SCH (08:41)
[2021-07-15] MEDS: ROPINIROLE HCL 0.25 MG TAB PO SCH (08:41)
[2021-07-15] MEDS: FENOFIBRATE 145 MG TAB PO SCH (08:42)
[2021-07-15] MEDS ORDERED: LASIX40 MG PO (10:09)
[2021-07-15] MEDS ORDERED: PANTOPRAZOLE SO40 MG PO (10:09)
[2021-07-15 11:28] VITALS: BP 133/73
[2021-07-15] MEDS ORDERED: LIDOCAINE 4% PATCH TP SCH (15:30)
[2021-07-15] MEDS ORDERED: LIDOPATCH1 EACH TOP (15:41)
[2021-07-15] MEDS ORDERED: CLINDAMYCIN HCL 150 MG CAP PO SCH (16:00)
[2021-07-15 16:08] VITALS: BP 118/61
[2021-07-15] MEDS ORDERED: METOCLOPRAMIDE HCL 10 MG TAB PO SCH (16:30)
[2021-07-15] MEDS ORDERED: FUROSEMIDE 40 MG TAB PO SCH (18:00)
== END 2021-07-15 16:41 | disposition home health service (06) | DRG 728 ==
LOC: ER 11:58 → ERHOLD 16:04 → MED/SURG3 22:43 → MED/SURG 07-14 13:44 → MED/SURG3 07-14 14:14
PROVIDERS: ADMIT Internal Medicine; ATTEND Internal Medicine
PROC: 02HV33Z Insertion of Infusion Device into Superior Vena Cava, Percutaneous Approach (ICD-10-PCS; principal; 2021-07-09)
DX: N49.2 Inflammatory disorders of scrotum (principal); N39.0 Urinary tract infection, site not specified; N17.9 Acute kidney failure, unspecified; Z68.42 Body mass index [BMI] 45.0-49.9, adult; E87.1 Hypo-osmolality and hyponatremia; E11.51 Type 2 diabetes mellitus with diabetic peripheral angiopathy without gangrene; Z79.899 Other long term (current) drug therapy; R60.0 Localized edema; E11.40 Type 2 diabetes mellitus with diabetic neuropathy, unspecified; Z89.422 Acquired absence of other left toe(s); M16.10 Unilateral primary osteoarthritis, unspecified hip; E66.01 Morbid (severe) obesity due to excess calories; N47.1 Phimosis; K40.20 Bilateral inguinal hernia, without obstruction or gangrene, not specified as recurrent; D64.9 Anemia, unspecified; R35.1 Nocturia; Z20.822 Contact with and (suspected) exposure to COVID-19; E11.22 Type 2 diabetes mellitus with diabetic chronic kidney disease; I12.9 Hypertensive chronic kidney disease with stage 1 through stage 4 chronic kidney disease, or unspecified chronic kidney disease; N18.30 Chronic kidney disease, stage 3 unspecified; K59.00 Constipation, unspecified; G89.29 Other chronic pain; E88.09 Other disorders of plasma-protein metabolism, not elsewhere classified; E78.5 Hyperlipidemia, unspecified; Z89.511 Acquired absence of right leg below knee; R13.10 Dysphagia, unspecified; E83.42 Hypomagnesemia; E87.6 Hypokalemia; E11.65 Type 2 diabetes mellitus with hyperglycemia
CPT/HCPCS: 36415; 36569; 71045; 74018; 74177; 74470; 76770; 76870; 80048; 80053; 81001; 81015; 82044; 82570; 82607; 82728; 82746; 82948; 83540; 83605; 83735; 83880; 84156; 84166; 84300; 84466; 84484; 85025; 87040; 93005; 93306; 93976; 94799; 96361; 97139; 99251; 99284; J0692; J1815; J1940; J2270; J2405; J2543; J2765; J3370; J7030; J7050; Q9967; U0002